=== PATIENT | female | born 1980 | race African-American/Black ===

== ENCOUNTER 2016-07-31 12:15 | Emergency (ER) | payer OTHER ==
[~2016-07-31] VITALS: Ht 157.5 cm; Wt 82.4 kg
[~2016-07-31 12:15] MED LIST: MOBIC7.5 MG PO; NAPROSYN500 MG PO
[2016-07-31 13:33] LABS: HEMATOCRIT 37.9 % (36.0-46.0); MCH 29.5 PG (29.0-34.0); MCHC 32.2 G/DL (30.0-36.0); MCV 91.5 FL (83-99); MEAN PLAT.VOLUME 10.8 uM^3 (9.5-12.4); PLATELET COUNT 203 K/uL (156-360); RBC DIS.WIDTH-CV 13.5 % (11.8-14.6); RED BLOOD COUNT 4.14 M/uL (3.80-5.20); WHITE BLOOD COUNT 6.5 K/uL (4.1-10.2)
[2016-07-31 13:43] LABS: CHLORIDE 109 mEq/L (99-109); POTASSIUM 3.9 mEq/L (3.7-5.4); SODIUM 139 mEq/L (136-147)
[2016-07-31 13:45] LABS: GLUCOSE 78 mg/dL (70-99)
[2016-07-31 13:46] LABS: ANION GAP 5 MEQ/L (2-14)
[2016-07-31 13:49] LABS: GFR ESTIMATE (CALCULATED) > 59 mL/min/
[2016-07-31 13:50] LABS: UREA NITROGEN (BUN) 11 mg/dL (9-23)
[2016-07-31 13:52] LABS: TROP-I INTERPRETATION NEGATIVE; TROPONIN-I < 0.01 ng/mL (0.0-0.30)
[2016-07-31 16:01] LABS: TROP-I INTERPRETATION NEGATIVE; TROPONIN-I < 0.01 ng/mL (0.0-0.30)
[2016-07-31 16:34] VITALS: BP 126/74
== END 2016-07-31 16:35 | disposition home or self-care (01) ==
LOC: EME 12:15
PROVIDERS: Physician Assistant Medical
DX: R07.9 Chest pain, unspecified (principal); Z87.891 Personal history of nicotine dependence
CPT/HCPCS: 71020; 80048; 84484; 85027; 93005; 99281; 99283